=== PATIENT | female | born 1950 | race Caucasian/White ===

== ENCOUNTER 2024-02-08 16:28 | Outpatient (CLI) | payer MEDICARE, BC, SELFPAY | END 2024-02-08 16:29 | disposition home or self-care (01) | LOC: NFLDREF 02-09 06:56 | PROVIDERS: PCP Internal Medicine Nephrology; Referring Provider Internal Medicine Nephrology; Visit Provider Internal Medicine Nephrology | DX: I13.0 Hypertensive heart and chronic kidney disease with heart failure and stage 1 through stage 4 chronic kidney disease, or unspecified chronic kidney disease (principal); N18.4 Chronic kidney disease, stage 4 (severe); D63.1 Anemia in chronic kidney disease; I50.9 Heart failure, unspecified; N25.81 Secondary hyperparathyroidism of renal origin | CPT/HCPCS: 80069; 82043; 82570; 82607; 82728; 83540; 83550; 84450; 84460; 84550; 86140; 87086 ==